=== PATIENT | female | born 1960 | race Caucasian/White ===

== ENCOUNTER 2016-03-11 18:47 | Emergency (ER) | payer MEDICARE ==
[2016-03-11 19:05] VITALS: TEMP 98.1; BMI 24.0
[2016-03-11] MEDS ORDERED: OXYCODONE HCL 5 MG TABLET PO ONE (19:35)
--- NOTE | 2016-03-11 19:37 | EDPRACDOC ---
- General Chief Complaint: Back Pain Stated Complaint: FALL; BACK PAIN Time Seen by Provider: 03/11/16 19:26 Information Source: Patient - History of Present Illness Onset: station captain HPI: Pt states she slipped on ice and fell. C/o neck and back pain. Denies LOC, vision changes, n/v, cp, sob, abd pain, loss of control of bowel or bladder, wounds. Pain Severity: Reports: Moderate Injuries/Pain Location: Reports: neck, back Reason for Fall: Reports: slipped Loss of Consciousness: no loss of consciousness Modifying Factors: worse with: cold therapy, immobilization, jarring, movement, pain medication, rest, other Associated Symptoms (Fall): Reports: neck pain Allergies/Adverse Reactions: Allergies No Known Allergies Allergy (Verified 03/11/16 19:05) Home Medications: Ambulatory Orders Diazepam [Valium] 5 mg PO TID PRN #10 tablet 09/26/13 Oxycodone Immediate Release [Oxycodone Immediate Release Tablet] 5 mg PO Q4H PRN #10 tab 09/26/13 Prednisone [Deltasone, Orasone] 20 mg PO BID #10 tab 09/26/13 Cyclobenzaprine HCl [Flexeril] 10 mg PO TID PRN #15 tablet 03/11/16 Hydrocodone Bit/Acetaminophen [Lortab 5/325] 1 tab PO Q4-6H PRN #15 tab ED Past Medical History - History Reviewed Yes Nurses notes reviewed and agree except as marked - Patient Medical History Psychological History: Reports: Anxiety. Denies: Depression - Social Medical History Smoking Status: Heavy tobacco smoker (5 or more cigarettes/day or daily pipe/ cigar) ETOH: None Substance Abuse: None EDM Review of Systems - Review of Systems Constitutional: No Symptoms Reported. negative: Fever, Chills, Weakness, Fatigue, Loss of Appetite Eyes: No Symptoms Reported. negative: Redness, Blurred Vision, Double Vision, Discharge, Pain, Light Sensitive, Photophobia Respiratory: No Symptoms Reported. negative: Cough, Brassy Cough, Barky Cough, Shortness of Breath, Wheezing, Hemoptysis Cardiovascular: No Symptoms Reported. negative: Chest Pain, Palpitations, Syncope, Edema, Orthopnea, PND, Skin Mottling, Cyanosis Gastrointestinal: No Symptoms Reported. negative: Pain, Constipation, Nausea, Vomiting, Diarrhea, Melena, Formula Intolerance Genitourinary: No Symptoms Reported. negative: Dysuria, Hematuria, Frequency, Discharge, Bleeding, Testicular Pain, Neurological: No Symptoms Reported. negative: Headache, Dizziness, Seizure, Numbness, Weakness, Speech Difficulty, Gait Difficulty Musculoskeletal: Back, Neck Integumentary: No Symptoms Reported. negative: Itching, Rash, Bruising, Wound Allergic/Immunologic: No Symptoms Reported. negative: Hives, Itching Hematologic: No Symptoms Reported. negative: Lymphadenopathy, Easy Bruising, Easy Bleeding Psychiatric: No Symptoms Reported. negative: Anxiety, Depression, Hallucinations, Insomnia, Suicidal - Physical Exam Constitutional: Alert Oriented to: Time, Person, Place Last recorded Vital Signs: Last Vital Signs Temp 98.1 F 03/11/16 19:02 Pulse 66 03/11/16 19:02 Resp 20 03/11/16 19:02 BP 147/83 03/11/16 19:02 Pulse Ox 92 03/11/16 19:02 Oxygen Pulse Oxygen Saturation 92 O2 Device Room Air Oxygen Flow Rate Fraction of Inspired Oxygen ( FIO2) - HEENT Head: Normal ( normocephalic) Eye Exam: Normal (PERRL, EOMI, Sclera white) Neck: In Collar - Respiratory/Cardiovascular Respiratory: Normal - CTA (BBS clear to auscultation without adventitious sounds ) Cardiovascular: Normal (RRR without murmur, gallop or rub) - GI Auscultation: Normal (NABS) Palpation: Normal (Soft,No rebound or guarding, non distended) Tenderness: Non tender, Other (no luq or ruq tenderness) Barroso's Sign: Negative - Musculoskeletal Back: Thoracic TTP, Lumbar TTP Extremities: Normal - Integumentary Skin: Normal, Warm, Dry Lymphatics: Normal (no adenopathy) - Neurologic Memory Impaired: Normal Motor Function: Normal (Normal tone, Pulses 2+ No cyanosis or edema, FROM) Mood Description: Normal Perception: Normal ED Injury/Fall Exam - Physical Exam Head Injury: no evidence of injury Extremity Exam: no evidence of injury, normal range of motion, non-tender, no pedal edema Skin: Normal, Warm, Dry - [place] Coma Score Best Eye Response (Juan Carlos): (4) open spontaneously Best Verbal Response ([place]): (5) oriented Best Motor Response (J[place]): (6) obeys commands [place] Total: 15 - Differential Diagnosis Contusion, Fracture, Mechanical Fall, Sprain, Strain - Diagnostic Imaging C-spine Image interpreted by: Radiologist IMPRESSION: Negative cervical spine radiographs. T-Spine Image interpreted by: Radiologist IMPRESSION: Negative. L-Spine Image interpreted by: Radiologist IMPRESSION: No acute fracture or subluxation of the lumbar spine. Stable degenerative change. Decision Time to Discharge: 20:58 - Departure Disposition: Home Condition: Good Final Diagnosis: Back strain of thoracic region, Lumbar sprain Cervical strain, acute Qualifiers: Encounter type: initial encounter Qualified Code(s): S16.1XXA - Strain of muscle, fascia and tendon at neck level, initial encounter Instructions: Core Strengthening Exercises (GEN), Thoracic (Lumbar) Strain, Cervical Sprain (ED) Education/Counseling Given To: Patient Education/Counseling Given Regarding: Diagnosis, Treatment, Follow Up Referrals: None,No Provider [Primary Care Provider] - One Week Erika Krishnan MD [Staff Physician] - One Week Avi Cruz MD [Staff Physician] - One Week Prescriptions: Cyclobenzaprine HCl [Flexeril] 10 mg PO TID PRN #15 tablet PRN Reason: Pain Hydrocodone Bit/Acetaminophen [Lortab 5/325] 1 tab PO Q4-6H PRN #15 tab PRN Reason: Pain Additional Instructions: Return for worse or different symptoms.
--- NOTE | 2016-03-11 20:44 | DIRPT ---
CLINICAL DATA: 55-year-old female with history of trauma from a fall after slipping on ice today while walking her dog, fall onto concrete surface, complaining of left-sided neck pain and upper back pain. EXAM: CERVICAL SPINE - COMPLETE 4+ VIEW COMPARISON: No priors. FINDINGS: There is no evidence of cervical spine fracture or prevertebral soft tissue swelling. Alignment is normal. No other significant bone abnormalities are identified. IMPRESSION: Negative cervical spine radiographs. Electronically Signed By: Kam Nichols M.D. On: 03/11/2016 20:41
--- NOTE | 2016-03-11 20:47 | DIRPT ---
CLINICAL DATA: Slipped on ice today while walking her dog, falling onto concrete. Now with left lumbosacral back pain. EXAM: LUMBAR SPINE - COMPLETE 4+ VIEW COMPARISON: Radiograph 09/24/2013 FINDINGS: Vertebral body heights are normal. The degree of retrolisthesis of L3 on L4 has diminished in the interim. The posterior elements are intact. No progressive disc space narrowing. Mild facet arthropathy is again seen. No fracture. Sacroiliac joints are symmetric and normal. Surgical clips in the right upper quadrant of the abdomen. IMPRESSION: No acute fracture or subluxation of the lumbar spine. Stable degenerative change. Electronically Signed By: Neelam Damon M.D. On: 03/11/2016 20:44
--- NOTE | 2016-03-11 20:49 | DIRPT ---
CLINICAL DATA: 55-year-old female with history of trauma from a fall on ice today, falling backward on a concrete surface, complaining of upper back and left-sided neck pain. EXAM: THORACIC SPINE 2 VIEWS COMPARISON: No priors. FINDINGS: There is no evidence of thoracic spine fracture. Exaggerated thoracic kyphosis. Alignment is otherwise normal. No other significant bone abnormalities are identified. Surgical clips project over the right upper quadrant of the abdomen, compatible with prior cholecystectomy. IMPRESSION: Negative. Electronically Signed By: Kam Nichols M.D. On: 03/11/2016 20:46
[2016-03-11 21:12] VITALS: BP 143/77; PULSE 65
== END 2016-03-11 21:15 | disposition home or self-care (01) ==
LOC: ED 18:47
DX: S39.012A Strain of muscle, fascia and tendon of lower back, initial encounter (principal); S29.012A Strain of muscle and tendon of back wall of thorax, initial encounter; W01.0XXA Fall on same level from slipping, tripping and stumbling without subsequent striking against object, initial encounter
CPT/HCPCS: 72050; 72070; 72110; 99283; A9270; J3490